=== PATIENT | female | born 1990 | race Caucasian/White ===

== ENCOUNTER 2021-04-04 17:52 | Emergency (ER) | payer MEDICAID ==
[~2021-04-04] VITALS: Ht 165.1 cm; Wt 83.5 kg
[2021-04-04 17:52] VITALS: BP 111/29
[2021-04-04] MEDS ORDERED: LORazepam 1 MG TAB PO ONE (18:05)
--- NOTE | 2021-04-04 18:21 | NUR ---
СВЕТЛАНА ON 5150 FOR "MENTAL BREAKDOWN" PT TOLD PD SHE HAD THOUGHTS OF HURTING HERSELF. PT IS CRYING, ANXIOUS, ERRATIC AND SAYING SHE NEEDS TO GO FIND HER KIDS. KIDS ARE CURRENTLY SAFE IN [facility] BUT PATIENT SAYING SHE HAS BEEN LOOKING FOR THEM. PT ADMITS TO METH USE TODAY. HX SCHIZOPHRENIA, BIPOLAR, METH ABUSE
[2021-04-04 18:22] LABS: BASOPHILS # (AUTO) 0.1 K/uL (0.00-0.22); EOSINOPHILS % (AUTO) 0.4 % (0.0-4.0); HEMATOCRIT 30.6 % (36-48); HEMOGLOBIN 9.9 g/dL (12.0-16.0); LYMPHOCYTES # (AUTO) 1.6 K/uL (2.5-16.5); LYMPHOCYTES % (AUTO) 17.2 % (20.5-51.1); MEAN CORPUSCULAR HEMOGLOBIN 26 pg (27-31); MEAN CORPUSCULAR HGB CONC 33 g/dL (33-37); MONOCYTES # (AUTO) 0.8 K/uL (0.8-1.0); MONOCYTES % (AUTO) 8.3 % (1.7-9.3); NEUTROPHILS # (AUTO) 6.7 K/uL (1.8-7.7); NEUTROPHILS % (AUTO) 73.1 % (42.2-75.2); PLATELET COUNT (AUTO) 433 K/uL (140-450); RED BLOOD CELL COUNT(AUTO) 3.87 MIL/uL (4.20-5.40); RED CELL DISTRIBUTION WIDTH 16.8 % (11.6-13.7); WHITE BLOOD COUNT (AUTO) 9.2 K/uL (4.8-10.8)
--- NOTE | 2021-04-04 18:22 | NUR ---
lab at the bedside.
--- NOTE | 2021-04-04 18:24 | NUR ---
Patient unable to provide a urine specimen at this time.
[2021-04-04 18:42] LABS: ALBUMIN 3.9 g/dL (3.4-5.0); ANION GAP 16.7 (8-16); CARBON DIOXIDE 20.7 mmol/L (21-32); CHLORIDE 104 mmol/L (98-107); CREATININE 1.1 mg/dL (0.6-1.3); GFR ARICAN-AMERICAN 75 mL/min (>90); GLUCOSE 73 mg/dL (74-106); POTASSIUM 3.4 mmol/L (3.5-5.1); SODIUM SERUM 138 mmol/L (136-145); TOTAL BILIRUBIN 0.7 mg/dL (0.0-1.0); UREA NITROGEN, BLOOD 13 mg/dL (7-18)
--- NOTE | 2021-04-04 19:20 | NUR ---
Report given to BISHOP Gorman for continuation of care.
--- NOTE | 2021-04-04 19:21 | NUR ---
RECEIVED REPORT FROM BISHOP SCHRADER. TRANSFER OF CARE AT THIS TIME.
--- NOTE | 2021-04-04 19:24 | NUR ---
PT IS SLEEPING. EQUAL RISE AND FALL OF CHEST WALL. PT UNABLE TO GIVE URINE AT THIS TIME. OPENS EYES TO SOUND. BED LOCKED IN LOWEST POSITION, SIDE RAILS X2. ALL NEEDS MET AT THIS TIME.
[2021-04-04 19:25] LABS: ACETAMINOPHEN < 0.5 ug/ml (10-30); SALICYLATE < 2.8 mg/dL (2.8-20.0)
[2021-04-04 19:38] LABS: ASPARTATE AMINOTRANSFERASE 17 U/L (15-37)
[2021-04-04 19:58] LABS: CKMB RELATIVE INDEX 3.8 (0.0-2.5)
[2021-04-04] MEDS ORDERED: NACL 0.9% 2,000 ML IV ONE (22:00)
--- NOTE | 2021-04-04 22:07 | NUR ---
SWABS COLLECTED AND WALKED TO LAB.
--- NOTE | 2021-04-04 22:15 | NUR ---
PT IS A HARD STICK. APPLIED WARM PACK ON PT'S L HAND FOR IV.
--- NOTE | 2021-04-04 23:23 | NUR ---
UNABLE TO STICK L HAND. APPLIED WARM PACK TO L HAND.
--- NOTE | 2021-04-05 03:05 | NUR ---
PT AMBULATED TO .
--- NOTE | 2021-04-05 03:14 | NUR ---
DEBI INITIATED PER DR. Reyna TIM
--- NOTE | 2021-04-05 03:17 | NUR ---
PT AMBULATED BACK TO BED WITH STEADY GAIT. PT STATED SHE DID NOT URINATE IN SAMPLE CUP BECAUSE SHE HAD TO USE THE RESTROOM REALLY BAD.
--- NOTE | 2021-04-05 04:20 | NUR ---
RECEIVED REPORT FROM BISHOP VALADEZ. ASSUMED CARE AT THIS TIME. PT SEEN WITH EYES CLOSED. VISIBLE CHEST RISE AND FALL NOTED. 1:[address] FOR SI PRECAUTION. ALL NEEDS MET AT THIS TIME. WILL CONTINUE TO MONITOR.
--- NOTE | 2021-04-05 05:55 | NUR ---
TELEPSYCH DOCTOR SPEAKING WITH PATIENT
--- NOTE | 2021-04-05 06:00 | NUR ---
TELEPSYCH CONSULT UNSUCCESSFUL D/T PT'S EXCESSIVE DROWINESS AND INABILITY TO ANSWERS QUESTIONS. DR. CARR REQUESTING TO MAKE CONTACT AGAIN ONCE PATIENT IS MORE ALERT.
--- NOTE | 2021-04-05 06:45 | NUR ---
PT SEEN WITH EYES CLOSED. VISIBLE CHEST RISE AND FALL NOTED. 1:[address] FOR SI PRECAUTION. ALL NEEDS MET AT THIS TIME. WILL CONTINUE TO MONITOR.
--- NOTE | 2021-04-05 07:10 | NUR ---
REPORT GIVEN TO BISHOP MUNIZ FOR CONTINUATION OF CARE. PT ENDORSED IN STABLE CONDITION.
--- NOTE | 2021-04-05 07:11 | NUR ---
REPORT RECEIVED FROM MOIRA ALAS, TRANSFER OF CARE AT THIS TIME. PT RESTING IN BED WITH EVEN AND UNLABORED RESPIRATIONS, VSS. WILL CONTINUE TO MONITOR.
--- NOTE | 2021-04-05 09:01 | NUR ---
PT SLEEPING IN BED. EVEN AND UNLABORED RESPIRATIONS OBSERVED. VSS. WILL CONTINUE TO MONITOR
--- NOTE | 2021-04-05 10:57 | NUR ---
PT AMBULATED TO RESTROOM FOR URINE SAMPLE. SAMPLE WALKED TO LAB
[2021-04-05 11:29] LABS: BILIRUBIN,URINE 1+ (NEGATIVE); BLOOD, URINE 1+ (NEGATIVE); COLOR,URINE YELLOW (YELLOW); LEUKOCYTE ESTERASE ,URINE 1+ (NEGATIVE); NITRITE, URINE NEGATIVE (NEGATIVE); UGLUCOSE NEGATIVE (NEGATIVE)
[2021-04-05 11:39] LABS: APPEARANCE,URINE HAZY (CLEAR)
[2021-04-05 11:42] LABS: WBC,URINE 16-25 (MOD) /HPF (0-5)
[2021-04-05 11:46] LABS: BARBITURATE, URINE NEGATIVE ng/ml (NEG <=200); BENZODIAZEPINE, URINE POSITIVE ng/mL (NEG <=200); CANNABINOID, URINE NEGATIVE ng/mL (NEG <=50); COCAINE, URINE NEGATIVE ng/mL (NEG <=300); OPIATE, URINE NEGATIVE ng/mL (NEG <=2000); PHENCYCLIDINE SCREEN,URINE NEGATIVE ng/mL (NEG <=25)
--- NOTE | 2021-04-05 12:05 | NUR ---
PT GIVEN LUNCH TRAY, PT STATED SHE JUST WANTS TO SLEEP. FOOD TRAY AT BEDSIDE.
--- NOTE | 2021-04-05 12:38 | NUR ---
PT SLEEPING IN BED WITH EVEN AND UNLABORED RESPIRATIONS. VSS. WILL CONTINUE TO MONITOR.
--- NOTE | 2021-04-05 12:44 | NUR ---
PT IS MEDICALLY CLEARNED BY DR TY.
--- NOTE | 2021-04-05 13:12 | NUR ---
PT SITTING UP IN BED EATING LUNCH. ICED WATER GIVEN TO PT
--- NOTE | 2021-04-05 13:40 | NUR ---
DR DOSHI, PSYCHIATRY AT BEDSIDE EVALUATING PT
--- NOTE | 2021-04-05 15:20 | NUR ---
Packet faxed to the following facilities: [facility] Theresa Tejeda
--- NOTE | 2021-04-05 15:30 | NUR ---
PT SLEEPING IN BED WITH EVEN AND UNLABORED RESPIRATIONS. VSS. WILL CONTINUE TO MONITOR
--- NOTE | 2021-04-05 17:45 | NUR ---
PT SLEEPING IN BED WITH EVEN AND UNLABORED RESPIRATIONS. VSS. WILL CONTINUE TO MONITOR
--- NOTE | 2021-04-05 18:45 | NUR ---
PT SITTING IN BED EATING DINNER TRAY. PT IS QUIET. VSS
--- NOTE | 2021-04-05 19:14 | NUR ---
REPORT GIVEN TO ALLYSON ALAS, TRANSFER OF CARE AT THIS TIME
--- NOTE | 2021-04-05 19:53 | NUR ---
PT AMBULATED TO WITH STEADY GAIT.
--- NOTE | 2021-04-05 19:56 | NUR ---
pt ambulated back to bed with steady gait.
--- NOTE | 2021-04-05 21:57 | NUR ---
PT IS SLEEPING. EQUAL RISE AND FALL OF CHEST WALL. RESPONDS TO VERBAL STIMULI. BED LOCKED IN LOWEST POSITION. SIDE RAILS X2.
--- NOTE | 2021-04-05 22:42 | NUR ---
cecilia jackson from [facility] called to get more info. stated someone else will call for full report.
--- NOTE | 2021-04-05 22:58 | NUR ---
gave report to girish [phone]
--- NOTE | 2021-04-05 22:59 | NUR ---
PT IS SLEEPING. EQUAL RISE AND FALL OF CHEST WALL. RESPONDS TO VERBAL STIMULI. BED LOCKED IN LOWEST POSITION. SIDE RAILS X2.
--- NOTE | 2021-04-05 23:38 | NUR ---
pt is sitting up in bed eating ice chips. provided with juice. all needs met at this time. bed locked in lowest position, side rails x2.
--- NOTE | 2021-04-06 00:06 | NUR ---
pt is awake and sitting up in bed, all needs met at this time.
--- NOTE | 2021-04-06 01:17 | NUR ---
PT IS SLEEPING. EQUAL RISE AND FALL OF CHEST WALL. RESPONDS TO VERBAL STIMULI. BED LOCKED IN LOWEST POSITION. SIDE RAILS X2.
--- NOTE | 2021-04-06 03:00 | NUR ---
PT IS SLEEPING. EQUAL RISE AND FALL OF CHEST WALL. RESPONDS TO VERBAL STIMULI. BED LOCKED IN LOWEST POSITION. SIDE RAILS X2.
--- NOTE | 2021-04-06 04:36 | NUR ---
PT IS SLEEPING. EQUAL RISE AND FALL OF CHEST WALL. RESPONDS TO VERBAL STIMULI. BED LOCKED IN LOWEST POSITION. SIDE RAILS X2.
--- NOTE | 2021-04-06 06:21 | NUR ---
PT IS SLEEPING. EQUAL RISE AND FALL OF CHEST WALL. RESPONDS TO VERBAL STIMULI. BED LOCKED IN LOWEST POSITION. SIDE RAILS X2.
--- NOTE | 2021-04-06 07:11 | NUR ---
[facility] TRANSPORT AT BEDSIDE
--- NOTE | 2021-04-06 07:20 | NUR ---
RECIEVED REPORT FROM BISHOP VALADEZ. TRANSFER OF CARE RECIEVED
[2021-04-06 07:25] VITALS: BP 122/82
--- NOTE | 2021-04-06 07:26 | NUR ---
REPORT GIVEN TO BISHOP SÁNCHEZ AT [facility] FROM JEWELRY DRILL OPERATOR NURSE ALLYSON Patient to be transferred to [facility] ROOM [address] [facility] [facility]. Is being transferred due to HIGHER LEVEL OF CARE. Receiving facility has accepting physician and available space. ER physician has signed transfer form. Patient or responsible republican has agreed to transfer and signed form. Patient belongings inventoried and will be sent with patient. Copy of nursing notes, lab reports, EKG, Physicians Orders and X-rays to be sent with patient. Report called to BISHOP SÁNCHEZ at receiving facility. [facility] ambulance service has been called for transfer. ETA is [phone].
== END 2021-04-06 07:19 ==
LOC: MED 17:52
DX: R45.851 Suicidal ideations (principal); F15.10 Other stimulant abuse, uncomplicated; F31.9 Bipolar disorder, unspecified; D64.9 Anemia, unspecified; F17.210 Nicotine dependence, cigarettes, uncomplicated; F31.0 Bipolar disorder, current episode hypomanic; Z20.822 Contact with and (suspected) exposure to COVID-19
CPT/HCPCS: 80053; 80305; 81001; 81025; 82550; 82553; 85025; 87086; 87426; 96360; 99285; G0480; G0482; J7030; U0003; 36415